=== PATIENT | male | born 1955 | race African-American/Black ===

== ENCOUNTER 2016-03-01 06:50 | Day surgery (SDC) | payer MEDICARE ==
[2016-03-01 07:49] LABS: HEMATOCRIT 35.1 % (37.9-51.0); HEMOGLOBIN 11.6 g/dL (13.5-17.0); HGB HCT DIFFERENCE -0.3; MEAN CORPUSCULAR HEMOGLOBIN 28.1 pg (27.0-33.4); MEAN CORPUSCULAR HGB CONC 33.1 g/dL (32.0-36.0); MEAN CORPUSCULAR VOLUME 85 fl (80-97); RED BLOOD COUNT 4.14 10^6/uL (4.35-5.55); RED CELL DISTRIBUTION WIDTH 14.4 % (11.5-14.0); WHITE BLOOD COUNT 11.7 10^3/uL (4.0-10.5)
[2016-03-01 08:02] LABS: ANION GAP 16 (5-19); BLOOD UREA NITROGEN 54 mg/dL (7-20); CALCIUM 9.2 mg/dL (8.4-10.2); CARBON DIOXIDE 26 mmol/L (22-30); CHLORIDE 99 mmol/L (98-107); GLUCOSE 169 mg/dL (75-110); POTASSIUM 4.1 mmol/L (3.6-5.0); SODIUM 141.4 mmol/L (137-145)
[2016-03-01 09:04] LABS: PROTHROMBIN TIME 12.7 SEC (11.4-15.4)
[2016-03-01 09:05] LABS: PARTIAL THROMBOPLASTIN TIME 31.1 SEC (23.5-35.8)
[2016-03-01] MEDS ORDERED: LIDOCAINE 0.5% INJ-PF (5 MG/ML) 50 ML SDV ONE (09:53)
[2016-03-01] MEDS ORDERED: FENTANYL CITRATE INJ/PF 100 MCG/2 ML AMPUL ONE (10:04)
[2016-03-01] MEDS ORDERED: HEPARIN SOD (PORCINE) 5,000 UNIT/ML 1 ML SYRINGE ONE (10:04)
[2016-03-01] MEDS ORDERED: MIDAZOLAM 2 MG/2 ML INJ ONE (10:04)
--- NOTE | 2016-03-01 10:12 | PDOC H&P ---
General Chief Complaint: The patient was referred across for improvement of AV fistula. It has been somewhat sluggish and recent dialysis. - Diagnosis (1) Hemodialysis AV fistula stenosis Is this a Current Diagnosis?: Yes (2) End-stage renal disease on hemodialysis Is this a Current Diagnosis?: Yes (3) Hypertension Is this a Current Diagnosis?: Yes - Current Medications/Allergies Home Medications: Amlodipine Besylate [Norvasc 10 mg Tablet] 1 tab PO DAILY 09/22/15 Calcium Carbonate [Calcium] 1 tab PO DAILY 09/22/15 Glipizide [Glucotrol 10 mg Tablet] 1 tab PO BID 09/22/15 Metoclopramide HCl [Reglan] 1 tab PO DAILY 09/22/15 Vit B Cmplx #9/FA/Vit C/Vit E [Renatabs Tablet] 1 tab PO DAILY 09/22/15 Allergies/Adverse Reactions: No Known Allergies Allergy (Unverified 09/22/15 11:01) Past Medical History Cardiac Medical History: Reports: Hypertension Denies: Coronary Artery Disease, Myocardial Infarction Pulmonary Medical History: Reports: Asthma - child Denies: Bronchitis, Chronic Obstructive Pulmonary Disease (COPD), Pneumonia Neurological Medical History: Denies: Seizures Musculoskeltal Medical History: Reports: Arthritis Hematology: Reports: Anemia Family History Parental Family History Reviewed: No Children Family History Reviewed: No Sibling(s) Family History Reviewed.: No Social History Smoking Status: Never Smoker Physical Exam Vital Signs: Temp Pulse Resp BP Pulse Ox 98.3 F 97 16 190/100 H 100 03/01/16 07:18 03/01/16 07:19 03/01/16 07:19 03/01/16 07:19 03/01/16 07:19 Intake & Output 02/29/16 03/01/16 03/02/16 06:59 06:59 06:59 Weight 91 kg Additional comments: A well-developed well-nourished -[place] male. Mildly increased body habitus. No acute distress. Eyes membranes is pink and moist, sclerae anicteric. Respiratory no shortness of breath. Breath sounds are normal and equal bilaterally. Cardiac: Heart sounds 1 and 2 heard, no murmurs. Upper extremities show normal range of movement and pulsatile to the radials. Normal capillary refill. A cephalic to radial fistula is appreciated. In the left upper extremity. Somewhat soft, suggesting perianastomotic stenosis. Psychiatric the patient is alert, oriented, judgment, memory, insight normal Impression/Plan Impression: #1 malfunctioning AV fistula of the left forearm, cephalic to radial. #2 hypertension. #3 end-stage renal disease on hemodialysis. Plan: This patient who has been undergoing dialysis but it is sluggish, suggestive of inflow problems. Prior dilatations have corrected most of the inflow stenosis and perianastomotic area. One seems to be persistent about 6 cm. The hope is to dilate this further and thus prolonged use of the fistula.
--- NOTE | 2016-03-01 11:19 | PDOC DISCHARGE SUMMARY ---
Discharge Summary (SDC) - Discharge Final Diagnosis: #1 malfunctioning AV fistula, left radiocephalic. #2 end-stage renal disease on hemodialysis. #3 hypertension. Date of Surgery: 03/01/16 Discharge Date: 03/01/16 Condition: Good Treatment or Instructions: #1 activities within moderation encouraged. #2 follow up in my office by appointment in about 1 month. Call for appointment. #3 the wounds covered clean and dry until removed in hemodialysis. #4 hold off on school/work until evaluation in office. #5 may shower in 48 hours, keep operated area as dry as possible. #6 discharge from ambulatory to when ASU criteria met. #7 medications per medication reconciliation sheet. Discharge Diet: Other (Comments) - Renal Respiratory Treatments at Home: Deep Breathing/Coughing Discharge Activity: Activity As Tolerated Report the Following to Your Physician Immediately: Shortness of Breath, Unusual Bleeding
--- NOTE | 2016-03-01 11:25 | Operative Report ---
Operative Report DATE OF SURGERY: 03/01/16 PREOPERATIVE DIAGNOSIS: #1 malfunctioning AV fistula, left radiocephalic. #2 end-stage renal disease on hemodialysis. #3 hypertension. POSTOPERATIVE DIAGNOSIS: #1 malfunctioning AV fistula, left radiocephalic. #2 end-stage renal disease on hemodialysis. #3 hypertension. OPERATION: #1 needle access into fistula. #2 fistula angioplasty. #3 angiogram and interpretation. SURGEON: ARMINDA MORTON AUTOMOTIVE SERVICE CONSULTANT: none ANESTHESIA: Moderate Sedation TISSUE REMOVED OR ALTERED: Not applicable COMPLICATIONS: None ESTIMATED BLOOD LOSS: 2 mils INTRAOPERATIVE FINDINGS: A well-founded left forearm radiocephalic fistula. Normal to auscultation, fairly normal except for a segment about 6 cm away from the anastomosis which is hard to feel. Proximally firm and hyper pulsatile, distally softer. This exactly conforms with a angiographic finding of an area of tight stenosis centimeter long and about 6 cm away from the anastomosis. Completely resolved by angioplasty. After angioplasty of the fistula much appropriately firmer than before suggesting successful improvement of inflow. The before and after angiograms were shown to the patient. PROCEDURE: PROCEDURE: After verifying the procedure and having obtained informed consent, the patient's left arm and forearm were prepared with Chlorhexidine and draped out with sterile linen. Local anesthesia infiltrated. Percutaneous access into the fistula ,[retrograde], obtained about [20 cm] from the arteriovenous anastomosis using a micro puncture needle followed by micro puncture wire and then a micro puncture catheter. Angiogram demonstrated the aforementioned findings. Angioplasty was elected. A 0.035 Nabb wire was inserted, and over this, a 6 Sami short introducer was placed, this was followed by a 5 mm angioplasty balloon . Angioplasty was now done at the distal radial artery just before the anastomosis and over the anastomotic and perianastomotic segment. This was done very carefully and in the up to 10 ted sustained for 2 minutes. Angiogram demonstrated successful outcome. Completion angiogram demonstrated [satisfactory result]. The instrumentation was now withdrawn over moderate to firm pressure for 10 minutes. Dressings applied, procedure concluded. Exposure time: 0.9 minutes Radiation: 2 berta per centimeter squared Contrast: 25 mL of Isovue-M 300 low osmolality. DICTATING PHYSICIAN: ARMINDA FOUNTAIN M.D. cc: ARMINDA FOUNTAIN M.D. ([id number]) >>
[2016-03-01 12:49] VITALS: BP 201/103
== END 2016-03-01 12:15 | disposition home or self-care (01) ==
LOC: CCL 06:50
PROVIDERS: ATTEND Surgery
PROC: 057F3DZ Dilation of Left Cephalic Vein with Intraluminal Device, Percutaneous Approach (ICD-10-PCS; principal; 2016-03-01)
DX: T82.858A Stenosis of other vascular prosthetic devices, implants and grafts, initial encounter (principal); Y83.2 Surgical operation with anastomosis, bypass or graft as the cause of abnormal reaction of the patient, or of later complication, without mention of misadventure at the time of the procedure; I12.0 Hypertensive chronic kidney disease with stage 5 chronic kidney disease or end stage renal disease; N18.6 End stage renal disease; Z99.2 Dependence on renal dialysis; M19.90 Unspecified osteoarthritis, unspecified site; D64.9 Anemia, unspecified; Z79.01 Long term (current) use of anticoagulants; Z79.899 Other long term (current) drug therapy
CPT/HCPCS: 36415; 85027; 85610; 85730; 80048; 36902; C1752; C1725; Q9967; C1769; J2250; J1644 ×2; J3010; J3490; 36901

== ENCOUNTER → 2016-03-17 | Outpatient (CLI) | payer MEDICARE ==
[2016-03-18 11:20] LABS: PROSTATE SPECIFIC ANTIGEN 8.8 ng/mL (0.0-4.0); PSA % FREE 26.7 % (.); PSA FREE 2.35 ng/mL
== END ==
LOC: OD 10:18
PROVIDERS: ATTEND Urology
DX: R97.20 Elevated prostate specific antigen [PSA] (principal)
CPT/HCPCS: 36415; 84154

== ENCOUNTER 2016-10-28 16:57 | Emergency (ER) | payer MEDICARE ==
[2016-10-28 18:12] LABS: ABSOLUTE BASOPHILS # (AUTO) 0.1 10^3/uL (0.0-0.2); ABSOLUTE EOSINOPHILS # (AUTO) 0.1 10^3/uL (0.0-0.6); ABSOLUTE LYMPHOCYTES (AUTO) 2.1 10^3/uL (0.5-4.7); ABSOLUTE MONOCYTES (AUTO) 1.5 10^3/uL (0.1-1.4); ABSOLUTE NEUT (AUTO) 10.3 10^3/uL (1.7-8.2); BASOPHILS % (AUTO) 0.4 % (0-2); HEMATOCRIT 35.1 % (37.9-51.0); HEMOGLOBIN 11.6 g/dL (13.5-17.0); HGB HCT DIFFERENCE -0.3; MEAN CORPUSCULAR VOLUME 82 fl (80-97); MONOCYTES % (AUTO) 10.9 % (3-13); RED BLOOD COUNT 4.28 10^6/uL (4.35-5.55); SEGMENTED NEUTROPHILS % (AUTO) 72.7 % (42-78); WHITE BLOOD COUNT 14.1 10^3/uL (4.0-10.5)
[2016-10-28 18:29] LABS: ALANINE AMINOTRANSFERASE 32 U/L (21-72); ALBUMIN 4.8 g/dL (3.5-5.0); ALKALINE PHOSPHATASE 107 U/L (38-126); ANION GAP 19 (5-19); ASPARTATE AMINO TRANSFERASE 27 U/L (17-59); BILIRUBIN,DIRECT 0.5 mg/dL (0.0-0.4); BILIRUBIN,TOTAL 0.7 mg/dL (0.2-1.3); BLOOD UREA NITROGEN 26 mg/dL (7-20); CALCIUM 9.9 mg/dL (8.4-10.2); CARBON DIOXIDE 29 mmol/L (22-30); CHLORIDE 94 mmol/L (98-107); CREATININE RESULT 5.45 mg/dL (0.52-1.25); GLUCOSE 201 mg/dL (75-110); POTASSIUM 3.7 mmol/L (3.6-5.0); SODIUM 141.9 mmol/L (137-145); TOTAL PROTEIN 8.3 g/dL (6.3-8.2)
--- NOTE | 2016-10-28 18:53 | ER Document Report ---
ED Cardiac - General Chief Complaint: Irregular Pulse Stated Complaint: IRREGULAR LABS Time Seen by Provider: 10/28/16 17:41 Mode of Arrival: Ambulatory Information source: Patient, Parent Notes: Patient was sent from dialysis with a fast heart rate. Patient's reports that he had some palpitations but feels better now. Patient states he feels fine now and does not have any complaints. He states he does not recall heart racing. At dialysis I also mentioned that his heart was irregular. Patient denies any chest pain or shortness of breath. Nothing makes symptoms better or worse. He states that he was hungry earlier. Symptoms appear to get better with eating and appear to be worse when he did not eat. No known radiation of the symptoms. Symptoms were constant when they lasted. No recent vomiting or diarrhea. He had a normal dialysis session today. TRAVEL OUTSIDE OF THE [place] IN LAST 30 DAYS: No - Related Data Allergies/Adverse Reactions: No Known Allergies Allergy (Verified 10/28/16 17:12) Past Medical History - General Information source: Patient - Social History Smoking Status: Current Every Day Smoker Frequency of alcohol use: Occasional Drug Abuse: None Family History: Reviewed & Not Pertinent Patient has suicidal ideation: No Patient has homicidal ideation: No - Past Medical History Cardiac Medical History: Reports: Hx Hypertension Denies: Hx Coronary Artery Disease, Hx Heart Attack Pulmonary Medical History: Reports: Hx Asthma - child Denies: Hx Bronchitis, Hx COPD, Hx Pneumonia Neurological Medical History: Denies: Hx Cerebrovascular Accident, Hx Seizures Renal/ Medical History: Denies: Hx Peritoneal Dialysis Musculoskeltal Medical History: Reports Hx Arthritis - Immunizations Hx Diphtheria, Pertussis, Tetanus Vaccination: No Review of Systems - Review of Systems Constitutional: denies: Fever, Malaise Cardiovascular: denies: Chest pain, Palpitations Respiratory: denies: Cough, Short of breath -: Yes All other systems reviewed and negative Physical Exam - Vital signs Vitals: Temp Pulse Resp BP Pulse Ox 98.6 F 100 14 174/88 H 99 10/28/16 17:14 10/28/16 17:14 10/28/16 17:14 10/28/16 17:14 10/28/16 17:14 Interpretation: Hypertensive - General General appearance: Appears well, Alert - HEENT Head: Normocephalic, Atraumatic Eyes: Normal Pupils: PERRL - Respiratory Respiratory status: No respiratory distress Chest status: Nontender Breath sounds: Normal Chest palpation: Normal - Cardiovascular Rhythm: Regular Heart sounds: Normal auscultation Murmur: No - Abdominal Inspection: Normal Distension: No distension Bowel sounds: Normal Tenderness: Nontender Organomegaly: No organomegaly - Back Back: Normal, Nontender - Extremities General upper extremity: Normal inspection, Nontender, Normal color, Normal ROM , Normal temperature General lower extremity: Normal inspection, Nontender, Normal color, Normal ROM , Normal temperature, Normal weight bearing. No: Michelle's sign - Neurological Neuro grossly intact: Yes Cognition: Normal Orientation: AAOx4 Harsh Coma Scale Eye Opening: Spontaneous Harsh Coma Scale Verbal: Oriented Alva Coma Scale Motor: Obeys Commands Alva Coma Scale Total: 15 Speech: Normal Motor strength normal: LUE, RUE, LLE, RLE Sensory: Normal - Psychological Associated symptoms: Normal affect, Normal mood - Skin Skin Temperature: Warm Skin Moisture: Dry Skin Color: Normal Course - Vital Signs Vital signs: Temp Pulse Resp BP Pulse Ox 98.6 F 100 14 174/88 H 99 10/28/16 17:14 10/28/16 17:14 10/28/16 17:14 10/28/16 17:14 10/28/16 17:14 - Laboratory Result Diagrams: 10/28/16 17:50 10/28/16 17:50 Laboratory results interpreted by me: 10/28/16 10/28/16 17:50 17:50 WBC 14.1 H RBC 4.28 L Hgb 11.6 L Hct 35.1 L RDW 15.0 H Absolute Neutrophils 10.3 H Absolute Monocytes 1.5 H Chloride 94 L BUN 26 H Creatinine 5.45 H Est GFR ( Amer) 13 L Est GFR (Non-Af Amer) 11 L Glucose 201 H Direct Bilirubin 0.5 H Total Protein 8.3 H - EKG Interpretation by Nc EKG shows normal: Sinus rhythm Rate: Normal Rhythm: NSR [place]/QRS: No: Right axis deviation, Left axis deviation When compared to previous EKG there are: No significant change Discharge - Discharge Clinical Impression: Palpitations Condition: Stable Disposition: HOME, SELF-CARE Instructions: Palpitations (Irregular or Rapid Heartrate) (OM) Additional Instructions: Follow-up with your primary doctor within the next week.
--- NOTE | 2016-10-28 18:54 | EKG REPORT ---
SEVERITY:- BORDERLINE ECG - SINUS RHYTHM PROBABLE LEFT ATRIAL ABNORMALITY BORDERLINE T WAVE ABNORMALITIES : Confirmed by: Elvin Veloz MD 28-Oct-2016 18:54:09
[2016-10-28 18:57] VITALS: BP 152/72
== END 2016-10-28 18:58 | disposition home or self-care (01) ==
LOC: ER 16:57
DX: R00.2 Palpitations (principal); Z99.2 Dependence on renal dialysis; F17.200 Nicotine dependence, unspecified, uncomplicated
CPT/HCPCS: 36415; 80053; 83735; 85025; 93005; 93010; 99285